=== PATIENT | female | born 1985 | race Caucasian/White ===

== ENCOUNTER 2024-11-17 07:29 | Outpatient (OUT) | payer OTHER, SELFPAY ==
--- OUTSIDE RECORDS SUMMARY | 2024-01-27 10:00 | XMS_ITS | Continuity of Care Document ---
Author Organization [employer] Address [address] [place] [phone] Phone Care Team Providers Care Obstetrics/Gynecology Nurse Name Role Phone Rohith Gomez MD Unavailable Unavail able Allergies, Adverse Reactions, Alerts Substance Reaction Status Criticality No Known Allergies Active No Inform ation Medications Medication Instructions Dosage Effective Dates (start - stop) Status Comments acetic acid 2 % ear solution 3 drops into affected ear TID - No Longer Active 7 days Procedures Procedure Date Office Outpt Est Advance Directives Directive Yes / No Effective Date File Name No Information Encounters Encounter Description Practice Location Reason(s) For Visit Diagnoses Date Provider Providers Copied on Encounter Office Outpt Est [facility], [address] [place] [address], [id number], tel:[phone] [facility] ear pain (chief complaint) Other specified mycoses Jason etienne [address] [place] [address], [id number], . tel:[phone] Family History Family Member Type Diagnosis Age At Onset Problem Family history of Diabetes m ellitus Problem Family history of cancer Payers Payer name Insurance type Covered green party ID Dom villasenor(s) [facility] [id number] Social History Type Description Quantity Date Captured Comments Alcohol Use Details No Caffeine Use Details coffee Tobacco Use Status Current non-smoker Smoking Status Never smoker Non-Smoking Tobacco Use Details : No Details Available : No Details Available Sex Female Vital Signs Date / Time: Height Weight BMI Pulse Rate Blood Pressure Temperature Respiratory Rate Body Surface Area Head Circumference Head Circ. Percentile Wt./Curry. Percentile BMI percentile Pulse Ox Inhaled Ox 2:01 PM 66.00 in 104.326 kg (230.00 lbs) 37.1 2 kg/m eter (2) Chief Complaint And Reason For Visit From encounter dated 01/27/2024 14:00'. ear pain (chief complaint) Reason For Referral Reason For Referral No Information History Of Present Illness Encounter Date Complaint History Of Prese nt Illness ear pain Functional Status Date Functional Assessmen t No Information Instructions Date Instruction Additional Infor mation No Information Assessments Type Assessment Date assessment Other specified mycoses 024 Patient Care Teams Name Effective Dates (start - stop) Status Members No Information
--- OUTSIDE RECORDS SUMMARY | 2024-11-17 07:35 | XMS_ITS | Clinical Summary ---
Author Organization [facility] Address [address] [place] [address] Care Team Providers Care Fitness Coach Name Role Phone Unallocated, Noms Provider MD Primary Care Provi jin Allergies No known active allergies Medications predniSONE (Deltasone) 10 MG tabletIndication s:Allergic contact dermatitis due to plants, except food Day 1-2 take 4 tabs orally by mouth once daily. Day 3-4 take 3 tabs. Day 5-6 take 2 tabs. Day 7-8 take 1 tab. Once daily for 8 days. 20 tablet 09/17/2024 Active Encounters Date Type Department Care Team Description 09/17/2024 10:15 AM EDT Office Visit [facility] [address] [place] [phone] Renata Viera PA Allergic contact dermatitis due to plants, except food (Primary Dx) 09/17/2024 Travel 09/06/2024 11:00 AM EDT Office Visit [facility] [address] [place] [phone] Zeinab Suarez DO Encounter for gynecological examination without abnormal finding; Screening for malignant neoplasm of cervix 09/06/2024 Bamboo flowsheet [facility] [address] [place] [address] Zeinab Suarez DO 09/06/2024 Travel from Last 3 Months Family History Medical History Relation Name Comments Diabetes Father Smith Hay Heart disease Maternal Grandfather Stroke Maternal Grandfather Heart disease Maternal Grandmother Myra Blair Stroke Maternal Grandmother Myra Blair Cancer Mother Juliette Vasques Diabetes Paternal Grandfather Don Hay Heart disease Paternal Grandfather Don Hay Cancer Paternal Grandmother Henna Vasques Diabetes Paternal Grandmother Henna Hay Heart disease Paternal Grandmother Henna Vasques Relation Name Status Comments Daughter Alive 1 daughter Father Smith Hay Alive Maternal Grandfather Maternal Grandmother Myra Blair Mother Juliette Hay Alive Paternal Grandfather Carlitos Vasques Paternal Grandmother Henna Vasques Son Alive 1 son Social History Tobacco Use Types Packs/Day Years Used Date Smoking Tobacco: Never Passive Smoke Exposure: Never Smokeless Tobacco: Never Tobacco Cessation:Counseling Given: Not Answered Alcohol Use Standard Drinks/Week Comments Not Currently 3 (1 standard drink = 0.6 oz pure alcohol) caffeine intake : more than 4 cups per day , 2-3 cups coffee per day Comments No Sex and Gender Information Value Date Recorded Sex Assigned at Female 08/04/2023 5:25 AM EDT Legal Sex Female 8:00 PM EDT Gender Identity Female 08/04/2023 5:25 AM EDT Sexual Orientation Not on file Last Filed Vital Signs Vital Sign Reading Time Taken Comments Blood Pressure 116/78 09/17/2024 10:24 AM EDT Pulse 97 09/17/2024 10:24 AM EDT Temperature 36.1 C (97 F) 09/17/2024 10:24 AM EDT Respiratory Rate - - Oxygen Saturation 99% 09/17/2024 10:24 AM EDT Inhaled Oxygen Concentration - - Weight 114 kg (251 lb) 09/06/2024 11:19 AM EDT Height 165.1 cm (5' 5 ) 08/19/2023 11:45 AM EDT Body Mass Index 41.77 08/19/2023 11:45 AM EDT Plan of Treatment Upcoming Encounters Date Type Department Care Team (Late st Contact Info) Description 09/12/2025 11:30 AM EDT Office Visit [facility] [address] [facility] [place] [phone] Zeinab Suarez, DO [address] [place] [address] Health Maintenance Due Date Last Done Comments Pap Smear 2006 Influenza Vaccine (#1) 2024 Cervical Cancer Screening 08/18/2028 HPV/Cotest 08/18/2028 08/19/2023, 06/16/2022, 05/22 Procedures Procedure Name Priority Date/Time Associated Diagnosis Comments IGP, RFX APTIMA HPV ASCU Routine 09/06/2024 12:00 AM EDT Screening for malignant neoplasm of cervix THINPREP IMAGING PAP W/REFL HPV MRNA E6/E7 Routine 08/19/2023 12:00 AM EDT Screening for malignant neoplasm of cervix from Last 3 Months or Most Recently Relevant to Health Maintenance Results * IGP, RFX APTIMA HPV ASCU (09/06/2024 12:00 AM EDT) Diagnosis: Comment [facility] Comment: NEGATIVE FOR INTRAEPITHELIAL LESION OR MALIGNANCY. CELLULAR CHANGES ASSOCIATED WITH INFLAMMATION ARE PRESENT. Specimen Adequacy: Comment [facility] Comment: Satisfactory for evaluation. Endocervical and/or squamous metaplastic cells (endocervical component) are present. Clinician Provided ICD10: Comment [facility] Comment:Z12.4 Performed By: Comment [facility] Comment:Christina Koch, Sand Cleaning Machine Operator ([facility]) Cyto Comments . [facility] Note: Comment [facility] Comment: The Pap smear is a screening test designed to aid in the detection of premalignant and malignant conditions of the uterine cervix. It is not a diagnostic procedure and should not be used as the sole means of detecting cervical cancer. Both false-positive and false-negative reports do occur. Test Methodology: Comment [facility] Comment: This liquid based ThinPrep(R) pap test was screened with the use of an image guided system. . Comment [facility] Comment: The HPV DNA reflex criteria were not met with this specimen result therefore, no HPV testing was performed. 09/06/2024 09/07/2024 Narrative [facility] - 09/10/2024 3:07 PM EDT Performed at: - [facility] [place] [facility] [address] [place], [place] [id number] Etl Tester: Jorge Green MD, Phone: [phone] Performed at: - [facility] [address] [place], [place] [id number] Etl Tester: Farhana Kendrick MD, Phone: [phone] Specimen Comment: [id number] Specimen Comment: No. of containers..01 ThinPrep Vial us Zeinab Suarez DO LAB BLOOD ORDERABLES Final Result [facility] * THINPREP IMAGING PAP W/REFL HPV MRNA E6/E7 (08/19/2023 12:00 AM EDT) CLINICAL INFORMATION [facility] Comment:None given LMP [facility] Comment:None given PREV. PAP [facility] Comment:None given PREV. BX [facility] Comment:None given SOURCE [facility] Comment:None given STATEMENT OF ADEQUACY [facility] Comment: Satisfactory for evaluation. Endocervical/transformation zone component present. INTERPRETATION/RESUL T [facility] Comment: Cytology Results: Negative for intraepithelial lesion or malignancy. COMMENT [facility] Comment: This Pap test has been evaluated with computer assisted technology. BODY BUILDER [facility] Comment: JULIEN OSPINA(ASCP) CT screening location: [facility] [place], [address] [place] [address]. (ALWAYS MESSAGE) [facility] Comment: EXPLANATORY NOTE: The Pap is a screening test for cervical cancer. It is not a diagnostic test and is subject to false negative and false positive results. It is most reliable when a satisfactory sample, regularly obtained, is submitted with relevant clinical findings and history, and when the Pap result is evaluated along with historic and current clinical information. Swab Cervix uteri structure / Unknown 08/19/2023 08/20/2023 1:12 AM EDT Narrative Resulting Agency Comment Performing Organization Information Site ID: [id number] Name: [facility] Address: [address] [place] [address], [address] [place] [phone] Director: Vinay Wen MD us Zeinab Suarez DO LAB CYTOLOGY ORDERABLES Fin al Result [facility] from Last 3 Months or Most Recently Relevant to Health Maintenance Insurance [employer] Care Teams Fitness Coach Relationship Specialty Start Date End Date Unallocated, Noms MD Giovanni [address] [place], [place] [id number] PCP - General 11/10/22
[2024-11-18 07:09] LABS: FSH 5.2 mIU/mL (.)
[2024-11-20 14:09] LABS: Estrogens, Total 214 pg/mL (.)
== END 2024-11-17 07:30 | disposition home or self-care (01) ==
PROVIDERS: PCP Family Medicine; Visit Provider Family Medicine
DX: M13.80 Other specified arthritis, unspecified site (principal); M25.50 Pain in unspecified joint; L68.0 Hirsutism; R73.09 Other abnormal glucose; R63.5 Abnormal weight gain
CPT/HCPCS: 36415; 82627; 82672; 83001; 83002; 83036; 84146; 84403; 85652